=== PATIENT | female | born 1930 ===

== ENCOUNTER 2017-09-18 08:00 | Inpatient (IN) | payer OTHER ==
[~2017-09-18] VITALS: Ht 157.5 cm; Wt 68.0 kg
[2017-09-18] MEDS ORDERED: CLONAZEPAM0.5 MG PO (14:52)
[2017-09-18] MEDS ORDERED: [UNRECOGNIZED DRUG - OTHER] PO (14:53)
[2017-10-01] MEDS ORDERED: XARELTO10 MG PO (14:14)
== END 2017-09-26 21:25 | DRG 470 ==
LOC: O/R 09-24 06:05 → SURH 09-24 06:05
PROVIDERS: Orthopaedic Surgery
PROC: 0SR90JZ Replacement of Right Hip Joint with Synthetic Substitute, Open Approach (ICD-10-PCS; principal; 2017-09-24 10:00)
DX: M16.11 Unilateral primary osteoarthritis, right hip (principal); D62 Acute posthemorrhagic anemia

== ENCOUNTER → 2018-03-10 10:01 | Outpatient (CLI) | payer OTHER ==
[~2018-03-10 10:01] MED LIST: CLONAZEPAM0.5 MG PO; XARELTO10 MG PO; [UNRECOGNIZED DRUG - OTHER] PO
== END | disposition home or self-care (01) ==
LOC: LAB 10:01
DX: R00.2 Palpitations (principal); R42 Dizziness and giddiness; E55.9 Vitamin D deficiency, unspecified; Z11.4 Encounter for screening for human immunodeficiency virus [HIV]